=== PATIENT | female | born 1950 | race Caucasian/White ===

== ENCOUNTER 2016-05-22 22:27 | Emergency (ER) | payer OTHER ==
[2016-05-22 22:42] VITALS: BP 123/84
[2016-05-22] MEDS ORDERED: Budesonide 0.5 MG/2 ML Neb Susp NEB ONE (23:20)
--- NOTE | 2016-05-22 23:29 | EDM.PDOC ---
ED HPI GENERAL MEDICAL PROBLEM - General Chief Complaint: General Stated Complaint: COUGH Time Seen by Provider: 05/22/16 23:05 Source of Information: Reports: Patient History Limitations: Reports: No limitations - History of Present Illness INITIAL COMMENTS - FREE TEXT/NARRATIVE: Cough, congestion, chills, low grade fever present for 4 days. was sick with viral URI just before patient became ill. No GI changes. Some nausea with coughing however. COugh is non-productive. Achy, sore throat which she attributes to cough. ROS otherwise negative. History of COPD. Chest Pain Score (Numeric/FACES): 5 - Related Data Allergies Allergy/AdvReac Type Severity Reaction Status Date / Time codeine Allergy Itching Verified 05/22/16 22:43 oxycodone Allergy Itching Verified 05/22/16 22:43 albuterol Allergy Nervousness Uncoded 05/22/16 22:43 Home Meds: Home Meds Ondansetron [Zofran ODT] 4 mg PO Q6H PRN #15 tab.dis 03/13/14 [Rx] Simvastatin [Zocor] 10 mg PO DAILY 04/06/15 [History] Tiotropium [Spiriva HandiHaler] 18 mcg INH BID 04/06/15 [History] Benzonatate [Tessalon Perles] 100 mg PO TID PRN #20 cap 05/22/16 [Rx] Budesonide/Formoterol Fumarate [Symbicort 160-4.5 Mcg Inhaler] 1 puff INH DAILY 05/22/16 [History] Doxycycline [Vibramycin] 100 mg PO BID #14 cap 05/22/16 [Rx] Past Medical History Cardiovascular History: Reports: High cholesterol Respiratory History: Reports: Asthma, SOB, Other (see below) Other Respiratory History: emphysema Musculoskeletal History: Reports: Arthritis, Fibromyalgia Psychiatric History: Reports: Depression Endocrine/Metabolic History: Reports: Vitamin D deficiency - Past Surgical History HEENT Surgical History: Reports: LASIK GI Surgical History: Reports: Hernia repair/other Social & Family History - Tobacco Use Smoking Status *Q: Former Smoker Years of Tobacco use: 25 Packs/Tins Daily: 3 Used Tobacco, but Quit: Yes Month Tobacco Last Used: 05/30/1984 Second Hand Smoke Exposure: No - Caffeine Use Caffeine Use: Reports: Coffee - Alcohol Use Days Per Week of Alcohol Use: 1 Number of Drinks Per Day: 1 Total Drinks Per Week: 1 - Recreational Drug Use Recreational Drug Use: No ED ROS GENERAL - Review of Systems Review Of Systems: ROS reveals no pertinent complaints other than HPI. ED EXAM, GENERAL - Physical Exam Exam: See Below Exam Limited By: No limitations General Appearance: alert, WD/WN, no apparent distress, other (frequent dry cough noted. ) Eye Exam: bilateral eye: EOMI, normal inspection, PERRL Ears: normal external exam, normal canal, hearing grossly normal, normal TMs Nose: No: nasal swelling, nasal drainage Throat/Mouth: Normal inspection, Normal lips, Normal oropharynx, Normal voice, No airway compromise Head: atraumatic, normocephalic Neck: normal inspection, supple, non-tender, full range of motion. No: lymphadenopathy (L), lymphadenopathy (R) Respiratory/Chest: no respiratory distress, lungs clear, normal breath sounds, no accessory muscle use Cardiovascular: no murmur, tachycardia (pulse 103) GI/Abdominal: soft, non tender Extremities: normal capillary refill Neurological: alert, oriented, normal cognition, normal gait, no motor/sensory deficits Psychiatric: normal affect, normal mood Skin Exam: Warm, Dry, Intact, Normal color Course - Vital Signs Last Recorded V/S: Last Vital Signs Temp 37.3 C 05/22/16 22:39 Pulse 103 H 05/22/16 22:39 Resp 20 05/22/16 22:39 BP 123/84 05/22/16 22:39 Pulse Ox 97 05/22/16 22:39 - Orders/Labs/Meds Orders: Active Orders 24 hr Category Date Time Status RT Aerosol Therapy [RC] ASDIRECTED Care 05/22/16 23:21 Ordered Chest 2V [CR] Stat Exams 05/22/16 22:48 Taken Labs: Laboratory Tests 05/22/16 Range/Units 22:47 WBC 13.7 H (4.0-10.2) K/uL RBC 5.03 (3.77-5.09) M/uL Hgb 15.6 H (11.7-15.5) g/dL Hct 46.5 H (34.0-46.0) % MCV 92.4 (84.0-98.0) fL MCH 31.0 (28.2-33.3) pg MCHC 33.5 (31.7-36.0) g/dL RDW 12.6 (11.2-14.1) % Plt Count 289 (150-350) K/uL Neut % (Auto) 59.5 (45.0-80.0) % Lymph % (Auto) 24.5 (10.0-50.0) % Lassen % (Auto) 12.3 (2.0-14.0) % Eos % (Auto) 3.0 (0.0-5.0) % Baso % (Auto) 0.7 (0.0-2.0) % Neut # 8.16 H (1.40-7.00) K/uL Lymph # 3.36 (0.50-3.50) K/uL Lassen # 1.68 H (0.00-1.00) K/uL Eos # 0.41 (0.00-0.50) K/uL Baso # 0.09 (0.00-0.20) K/uL Meds: Medications Discontinued Medications Generic Name Dose Route Start Last Admin Trade Name Freq PRN Reason Stop Dose Admin Budesonide 0.5 mg 05/22/16 23:20 05/22/16 23:26 Pulmicort NEB 05/22/16 23:21 0.5 mg ONETIME ONE Administration - Radiology Interpretation Free Text/Narrative:: Chest xray shows COPD. No obvious acute focal infiltrates. - Re-Assessments/Exams Free Text/Narrative Re-Assessment/Exam: 05/22/16 23:26 Patient has history of adverse reaction to Albuterol as well as hives with Codeine. Unable to prescribe inhaler or Robit AC. Will treat with Prednisone course and Tessalon. Lungs overall clear, no focal infiltrates on xray noted. Radiology to review. Day four of illness. WBC 13. Feel that this is most likely a viral illness at this point. However will give patient a prescription for Doxy to be filled if things do not start to improve by Tuesday, or if symptoms worsen. Departure - Departure Time of Disposition: 23:29 Disposition: Home, Self-Care 01 Condition: good Clinical Impression: Bronchitis Prescriptions: Benzonatate [Tessalon Perles] 100 mg PO TID PRN #20 cap PRN Reason: Cough Doxycycline [Vibramycin] 100 mg PO BID #14 cap Instructions: Prednisone tablets, Acute Bronchitis Referrals: PCP,Unknown [Primary Care Provider] - Forms: ED Department Discharge Additional Instructions: Start Doxycycline if symptoms have not improved within 2-3 days, or if things appear to be worsening. Follow up as needed if you have any problems. - My Orders Last 24 Hours: My Active Orders 05/22/16 22:48 Chest 2V [CR] Stat 05/22/16 23:21 RT Aerosol Therapy [RC] ASDIRECTED - Assessment/Plan Last 24 Hours: My Active Orders 05/22/16 22:48 Chest 2V [CR] Stat 05/22/16 23:21 RT Aerosol Therapy [RC] ASDIRECTED
== END 2016-05-23 | disposition home or self-care (01) ==
LOC: LL.ED 22:27
DX: J40 Bronchitis, not specified as acute or chronic (principal); J45.909 Unspecified asthma, uncomplicated; M19.90 Unspecified osteoarthritis, unspecified site; F32.9 Major depressive disorder, single episode, unspecified; Z88.5 Allergy status to narcotic agent; Z88.8 Allergy status to other drugs, medicaments and biological substances; Z79.899 Other long term (current) drug therapy; Z87.891 Personal history of nicotine dependence
CPT/HCPCS: 36415; 71020; 85025; 87804; 94640; 94664; 99283

== ENCOUNTER 2018-03-12 19:35 | Emergency (ER) | payer OTHER ==
--- NOTE | 2018-03-12 19:48 | EDM.PDOC ---
ED HPI GENERAL MEDICAL PROBLEM - General Chief Complaint: Laceration Stated Complaint: laceration Time Seen by Provider: 03/12/18 19:40 Source of Information: Reports: Patient, Family (), Old Records ([facility] EMR. No paper hospital chart available.) History Limitations: Reports: No Limitations - History of Present Illness INITIAL COMMENTS - FREE TEXT/NARRATIVE: The patient was brought to the emergency room via private automobile by her for evaluation of a laceration on her right foot, which occurred at home at about 18:30 hours this evening. The patient was walking on her kitchen floor on stocking feet when she accidentally stepped on a large piece of glass with no history of foreign body and patient easily able to completely remove the glass from her sock and foot. No treatment prior to arrival. She rates her discomfort at 4/10. Her last tetanus booster was 4 years ago [address] the [facility] in [place] by her history. No recent history of abdominal pain, heartburn, nausea, diarrhea, melena, gross hematochezia, or any food intolerance , including fatty foods, etc.. The patient also denies any recent fever, cough, wheezing, dyspnea, etc.. No history of fall, injury, or other complaints. Onset: Today, Sudden Onset Date: 03/12/18 Onset Time: 18:30 Duration: Constant Location: Reports: Lower Extremity, Right. 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: Reports: Other (see below) (None) Right Feet Pain Score (Numeric/FACES): 4 - Related Data Allergies Allergy/AdvReac Type Severity Reaction Status Date / Time codeine Allergy Itching Verified 03/12/18 19:40 oxycodone Allergy Itching Verified 03/12/18 19:40 albuterol Allergy Nervousness Uncoded 03/12/18 19:40 Home Meds: Home Meds Tiotropium [Spiriva HandiHaler] 18 mcg INH BID 04/06/15 [History] Budesonide/Formoterol Fumarate [Symbicort 160-4.5 Mcg Inhaler] 1 puff INH DAILY 05/22/16 [History] Alendronate Sodium [Fosamax] 70 mg PO TH 03/12/18 [History] Celecoxib [CeleBREX] 50 mg PO DAILY PRN 03/12/18 [History] Levalbuterol Tartrate [Xopenex Hfa] 1 puff IH Q2H PRN 03/12/18 [History] Past Medical History HEENT History: Reports: Impaired Vision, Other (See Below). Denies: Allergic Rhinitis, Cataract, Glaucoma, Hard of Hearing, Macular Degeneration, Otitis Media, Retinal Detachment Other HEENT History: Patient wears glasses. Cardiovascular History: Reports: High Cholesterol. Denies: CAD, Hypertension Respiratory History: Reports: Bronchitis, Recurrent, COPD, Pneumonia, Recurrent , SOB. Denies: Asthma Gastrointestinal History: Reports: Colon Polyp Musculoskeletal History: Reports: Arthritis, Back Pain, Chronic, Fracture, Neck Pain, Chronic, Osteoarthritis, Osteoporosis, Other (See Below). Denies: Amputation, Fibromyalgia, Gout, RA, SLE Other Musculoskeletal History: [facility] [place] Proximal to mid right first metatarsal fracture on 03/22/16. Left mid humeral shaft fracture at age 57 with right mid humeral shaft fracture in 2009. Mild scoliosis. Psychiatric History: Reports: Depression Endocrine/Metabolic History: Reports: Vitamin D Deficiency - Past Surgical History HEENT Surgical History: Reports: LASIK, Oral Surgery, Other (See Below). Denies : Adenoidectomy, Cataract Surgery, Eye Surgery, Myringotomy w Tube(s), Naso- Sinus Surgery, Tonsillectomy Other HEENT Surgeries/Procedures: LASIK in 2004. [place] teeth extraction 3 in her late 20s. GI Surgical History: Reports: Colonoscopy, Hernia Repair/Other, Other (See Below ) Other GI Surgeries/Procedures: Colonoscopy in September 2016 with excision of 8 polyps of unknown type. Right inguinal hernia repair in 1994. - Past Imaging History Past Imaging History: Reports: Mammogram (Last mammogram on 10/27/17.), MRI ( Lumbar spine on 11/26/13.) Social & Family History - Tobacco Use Smoking Status *Q: Former Smoker Tobacco Use Within Last Twelve Months: No Years of Tobacco use: 22 Packs/Tins Daily: 3 Packs/Tins Daily Comment: Smoked between ages 20 and 42 with no use since 1994. 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 ED EXAM, SKIN/RASH Exam: See Below Exam Limited By: No Limitations General Appearance: Alert, WD/WN, No Apparent Distress Head: Atraumatic, Normocephalic Neck: Normal Inspection, Supple, Non-Tender, Full Range of Motion. No: Lymphadenopathy (L), Lymphadenopathy (R) Respiratory/Chest: No Respiratory Distress, Lungs Clear, Normal Breath Sounds, No Accessory Muscle Use, Chest Non-Tender. No: Pleural Rub, Retractions Cardiovascular: Normal Peripheral Pulses, Regular Rate, Rhythm, No Edema, No Gallop, No JVD, No Murmur, No Rub. No: Gallop/S3, Gallop/S4, Friction Rub Peripheral Pulses: 2+: Radial (R), Femoral (L), Dorsalis Pedis (R) GI/Abdominal: Normal Bowel Sounds, Soft, Non-Tender, No Organomegaly, No Distention, No Abnormal Bruit, No Mass, Pelvis Stable. No: Guarding (Female) Exam: Deferred Rectal (Female) Exam: Deferred Back Exam: Normal Inspection, Full Range of Motion. No: CVA Tenderness (L), CVA Tenderness (R), Muscle Spasm Extremities: Normal Range of Motion, No Pedal Edema, Other (1 cm in length superficial laceration over the mid medial plantar surface of the right foot with no evidence of crepitation, deformity, foreign body, or significant nerve/ vascular involvement). No: Non-Tender (Localized tenderness at laceration site mild), Jv's Sign Neurological: Alert, Oriented, CN II-XII Intact, Normal Cognition, Normal Gait, No Motor/Sensory Deficits Psychiatric: Normal Affect, Normal Mood Skin: Warm, Dry, Normal Color, No Rash, Wound/Incision (As above) Location, Skin: Lower Extremity, Right (As above) Characteristics: Linear Associated features: Tenderness (As above). No: Swelling, Lymphangitis Lymphatic: No Adenopathy ED SKIN PROCEDURES - Laceration/Wound Repair Right Middle Medial Ventral Foot Lac/Wound length In cm: 1.0 Appearance: Subcutaneous Distal NVT: Neuro & Vascular Intact, No Tendon Injury Anesthetic Type: Local Local Anesthesia - Lidocaine (Xylocaine): 1% Plain Local Anesthetic Volume: Other (6 mL) Skin Prep: Providone-Iodine (Betadine) Exploration/Debridement/Repair: Wound Explored, In a Bloodless Field, Explored to Base, No Foreign Material Found Closed with: Sutures Suture Size: 4-0 # of Sutures: 3 Suture Type: Nylon, Interrupted, Simple Drain Placement: No Sterile Dressing Applied: Nurse Tetanus Status Addressed: Yes Complications: No Course - Vital Signs Last Recorded V/S: Last Vital Signs Temp 36.8 C 03/12/18 19:48 Pulse 72 03/12/18 19:48 Resp 18 03/12/18 19:48 BP 144/84 H 03/12/18 19:48 Pulse Ox 97 03/12/18 19:48 - Orders/Labs/Meds Orders: Active Orders 24 hr Category Date Time Status Foot 2V Rt [CR] Stat Exams 03/12/18 19:49 Ordered Obtain Past Medical Record [OM.PC] Routine Oth 03/12/18 19:48 Active Labs: None Meds: Medications Discontinued Medications Generic Name Dose Route Start Last Admin Trade Name Freq PRN Reason Stop Dose Admin Lidocaine HCl 5 ml 03/12/18 19:49 03/12/18 19:55 Xylocaine-Mpf 1% INJECT 03/12/18 19:50 5 ml ONETIME ONE Administration Lidocaine HCl 5 ml 03/12/18 19:49 03/12/18 19:56 Xylocaine-Mpf 1% INJECT 03/12/18 19:50 5 ml ONETIME ONE Administration Neomycin/Polymyxin/Bacitracin 1 each 03/12/18 19:49 03/12/18 19:56 Triple Antibiotic Oint TOP 03/12/18 19:50 1 each ONETIME ONE Administration - Radiology Interpretation Free Text/Narrative:: X-rays of the right foot, 2 views, shows mild to moderate osteoarthritic changes with no evidence of fracture, dislocation, foreign body, etc. Departure - Departure Time of Disposition: 20:40 Disposition: Home, Self-Care 01 Condition: Good Clinical Impression: Laceration COPD (chronic obstructive pulmonary disease) Qualifiers: COPD type: emphysema Emphysema type: panlobular Qualified Code(s): J43.1 - Panlobular emphysema Hyperlipidemia Qualifiers: Hyperlipidemia type: unspecified Qualified Code(s): E78.5 - Hyperlipidemia, unspecified Osteoarthritis Qualifiers: Osteoarthritis location: multiple joints Osteoarthritis type: primary Qualified Code(s): M15.0 - Primary generalized (osteo)arthritis - Discharge Information *PRESCRIPTION DRUG MONITORING PROGRAM REVIEWED*: Not Applicable *COPY OF PRESCRIPTION DRUG MONITORING REPORT IN PATIENT VALENTIN: Not Applicable Instructions: Stitches, Kyaw, or Adhesive Wound Closure, [id number], Laceration Care, Adult, [id number] Referrals: Nikki Cunha PA-C [Primary Care Provider] - Forms: ED Department Discharge Additional Instructions: 1. Followup with your regular provider in 10-14 days as directed for reevaluation and removal of 3 stitches. Bring these discharge instructions with you to that visit. 2. Antibacterial soap wash/soak with subsequent antibacterial dressing such as Neosporin, etc. as directed 2 times per day until the wound or laceration site completely heals. Keep the area clean and dry with activity restrictions as discussed. Never use hydroperoxide for wound care. 3. Obtain your influenza booster for you and your SANDIP as discussed. 4. Immediately after this visit verify that your cellular telephone's voicemail has been activated and is empty. Also verify that your home telephone 's answering machine is operating properly and has space to receive messages. Note that it is sometimes necessary for us to be able to contact you at a later date to discuss your medical care. 5. Please remember that we are ALWAYS here for you and want to answer any questions you may have. Feel free to call the hospital any time and we call you back SANDIP. - Problem List & Annotations (1) Laceration SNOMED Code(s): 121557121 Code(s): ZEU0576 - Status: Acute Priority: High Current Visit: Yes Onset Date: 03/12/18 Annotation/Comment:: Excellent results with laceration repair as above. ER nurse did confirm last DTaP on 01/15/14 through [facility]. Laceration care, activity restrictions, etc. extensively discussed. (2) COPD (chronic obstructive pulmonary disease) SNOMED Code(s): 24609850 Code(s): J44.9 - CHRONIC OBSTRUCTIVE PULMONARY DISEASE, UNSPECIFIED Status : Chronic Priority: Medium Current Visit: Yes Annotation/Comment:: Stable by history with no recent fever or bronchitic type symptoms. Qualifiers: COPD type: emphysema Emphysema type: panlobular Qualified Code(s): J43.1 - Panlobular emphysema (3) Hyperlipidemia SNOMED Code(s): 63976925 Code(s): E78.5 - HYPERLIPIDEMIA, UNSPECIFIED Status: Chronic Priority: Medium Current Visit: Yes Annotation/Comment:: Her statin therapy was apparently discontinued by her regular provider secondary to nonspecific myalgias with previous history of nonconfirmed fibromyalgia, which has been ruled out by her regular provider as above. She does have a follow-up appointment in the near future for repeat lipid panel, etc. by her history. Qualifiers: Hyperlipidemia type: unspecified Qualified Code(s): E78.5 - Hyperlipidemia , unspecified (4) Osteoarthritis SNOMED Code(s): 136447610 Code(s): M19.90 - UNSPECIFIED OSTEOARTHRITIS, UNSPECIFIED SITE Status: Chronic Priority: Medium Current Visit: Yes Annotation/Comment:: Stable by history Qualifiers: Osteoarthritis location: multiple joints Osteoarthritis type: primary Qualified Code(s): M15.0 - Primary generalized (osteo)arthritis - Problem List Review Problem List Initiated/Reviewed/Updated: Yes - My Orders Last 24 Hours: My Active Orders 03/12/18 19:48 Obtain Past Medical Record [OM.PC] Routine 03/12/18 19:49 Foot 2V Rt [CR] Stat - Assessment/Plan Last 24 Hours: My Active Orders 03/12/18 19:48 Obtain Past Medical Record [OM.PC] Routine 03/12/18 19:49 Foot 2V Rt [CR] Stat Assessment:: As above Plan: As above. Extensive precautions were given to the patient and her , who are in agreement with the treatment plan. See Patient Instructions for further treatment and plan.
[2018-03-12 19:52] VITALS: BP 144/84
[2018-03-12] MEDS: Bacitracin/Neomycin/Polymyxin B Oint 0.9 GM U/D Packet TOP ONE (19:56)
== END 2018-03-12 20:40 | disposition home or self-care (01) ==
LOC: LL.ED 19:35
DX: S91.311A Laceration without foreign body, right foot, initial encounter (principal); E78.00 Pure hypercholesterolemia, unspecified; E78.5 Hyperlipidemia, unspecified; J43.1 Panlobular emphysema; M15.0 Primary generalized (osteo)arthritis; Z87.891 Personal history of nicotine dependence; Z79.899 Other long term (current) drug therapy; Z88.5 Allergy status to narcotic agent; Y92.009 Unspecified place in unspecified non-institutional (private) residence as the place of occurrence of the external cause; W25.XXXA Contact with sharp glass, initial encounter
CPT/HCPCS: 12001; 73620-RT; 99283

== ENCOUNTER 2020-08-02 12:41 | Emergency (ER) | payer OTHER ==
[2020-08-02] MEDS ORDERED: Levalbuterol HCl 1.25 MG/3 ML Neb NEB ONE (12:53)
[2020-08-02 14:14] VITALS: BP 131/90; PULSE 95
--- NOTE | 2020-08-02 21:26 | EDM.PDOC ---
ED HPI GENERAL MEDICAL PROBLEM - General Chief Complaint: Respiratory Problem Stated Complaint: shortness of breath Time Seen by Provider: 08/02/20 13:00 Source of Information: Reports: Patient History Limitations: Reports: No Limitations - History of Present Illness INITIAL COMMENTS - FREE TEXT/NARRATIVE: Pt. presents to ER with complaints of 6 day history of cough productive or yellowish sputum, chest congestion, and wheezing. Pt. states that she thinks exposure to herbs. Pt. states that she has a history of COPD and has been taking her medications. Denies any fever or chills. No chest pain or shortness of breath. Pt. denies any jaw, arm, neck or back pain. No lightheadedness. No nausea, vomiting, or diarrhea. Denies any ill contacts. Pt. was screened for covid 19 last Tuesday and this was negative. Onset Date: 08/02/20 - Related Data Allergies Allergy/AdvReac Type Severity Reaction Status Date / Time codeine Allergy Itching Verified 08/02/20 12:43 oxycodone Allergy Itching Verified 08/02/20 12:43 albuterol Allergy Nervousness Uncoded 08/02/20 12:43 Home Meds: Home Meds Tiotropium [Spiriva HandiHaler] 18 mcg INH DAILY 04/06/15 [History] Budesonide/Formoterol Fumarate [Symbicort 160-4.5 Mcg Inhaler] 1 puff INH BID 05/22/16 [History] Alendronate Sodium [Fosamax] 70 mg PO TH 03/12/18 [History] Celecoxib [CeleBREX] 50 mg PO BID 03/12/18 [History] Levalbuterol Tartrate [Xopenex Hfa] 1 puff IH Q2H PRN 03/12/18 [History] Past Medical History HEENT History: Reports: Impaired Vision, Other (See Below) Other HEENT History: Patient wears glasses. Cardiovascular History: Reports: High Cholesterol Respiratory History: Reports: Bronchitis, Recurrent, COPD, Pneumonia, Recurrent, SOB Other Respiratory History: emphysema Gastrointestinal History: Reports: Colon Polyp Musculoskeletal History: Reports: Arthritis, Back Pain, Chronic, Fracture, Neck Pain, Chronic, Osteoarthritis, Osteoporosis, Other (See Below) Other Musculoskeletal History: Fib[facility] [place]. Proximal to mid right first metatarsal fracture on 03/22/16. Left mid humeral shaft fracture at age 57 with right mid humeral shaft fracture in 2009. Mild scoliosis. Psychiatric History: Reports: Depression Endocrine/Metabolic History: Reports: Vitamin D Deficiency - Infectious Disease History Infectious Disease History: Reports: Chicken Pox, Measles, Mumps, Rubella - Past Surgical History HEENT Surgical History: Reports: LASIK, Oral Surgery, Other (See Below) Other HEENT Surgeries/Procedures: LASIK in 2004. [place] teeth extraction 3 in her late 20s. GI Surgical History: Reports: Colonoscopy, Hernia Repair/Other, Other (See Below) Other GI Surgeries/Procedures: Colonoscopy in September 2016 with excision of 8 polyps of unknown type. Right inguinal hernia repair in 1994. 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) ED ROS GENERAL - Review of Systems Review Of Systems: See Below Constitutional: Reports: No Symptoms HEENT: Reports: No Symptoms Respiratory: Reports: Shortness of Breath, Wheezing Cardiovascular: Reports: No Symptoms Endocrine: Reports: No Symptoms GI/Abdominal: Reports: No Symptoms : Reports: No Symptoms Musculoskeletal: Reports: No Symptoms Skin: Reports: No Symptoms Neurological: Reports: No Symptoms Psychiatric: Reports: No Symptoms Hematologic/Lymphatic: Reports: No Symptoms Immunologic: Reports: No Symptoms ED EXAM, GENERAL - Physical Exam Exam: See Below Exam Limited By: No Limitations General Appearance: Alert, WD/WN, No Apparent Distress Nose: Normal Inspection, Normal Mucosa, No Blood Throat/Mouth: Normal Inspection, Normal Lips, Normal Teeth, Normal Gums, Normal Oropharynx, Normal Voice, No Airway Compromise Head: Atraumatic, Normocephalic Neck: Normal Inspection, Supple, Non-Tender, Full Range of Motion Respiratory/Chest: No Respiratory Distress, No Accessory Muscle Use, Decreased Breath Sounds Cardiovascular: Normal Peripheral Pulses, Regular Rate, Rhythm, No Edema, No JVD Peripheral Pulses: 4+: Radial (L) GI/Abdominal: Soft, Non-Tender, No Distention, No Mass (Female) Exam: Deferred Rectal (Female) Exam: Deferred Back Exam: Normal Inspection, Full Range of Motion Extremities: Normal Inspection, Normal Range of Motion, No Pedal Edema, Normal Capillary Refill Neurological: Alert, Oriented, CN II-XII Intact, Normal Cognition, Normal Reflexes, No Motor/Sensory Deficits Psychiatric: Normal Affect, Normal Mood Skin Exam: Warm, Dry, Intact, Normal Color, No Rash Lymphatic: No Adenopathy Course - Vital Signs Last Recorded V/S: Last Vital Signs Temp 37.3 C 08/02/20 12:46 Pulse 95 08/02/20 13:15 Resp 20 08/02/20 13:15 BP 131/90 08/02/20 13:15 Pulse Ox 98 08/02/20 13:15 - Orders/Labs/Meds Meds: Medications Discontinued Medications Generic Name Dose Route Start Last Admin Trade Name Valentin PRN Reason Stop Dose Admin Levalbuterol HCl 1.25 mg 08/02/20 12:53 08/02/20 13:04 Levalbuterol Hcl 1.25 Mg/3 Ml Neb NEB 08/02/20 12:54 1.25 mg ONETIME ONE Administration Departure - Departure Time of Disposition: 14:30 Disposition: Home, Self-Care 01 Clinical Impression: COPD exacerbation - Discharge Information Instructions: Chronic Obstructive Pulmonary Disease Exacerbation, [id number] Referrals: PCP,Unknown [Primary Care Provider] - Forms: ED Department Discharge Additional Instructions: Prednisone 10mg 4 tabs daily for 5 days Doxycycline 100mg 1 tab twice daily for 10 days Continue with your xopenex inhaler Minimize time outside for the next several days recheck in clinic in 10-14 days, sooner of not gradually improving Sepsis Event Note (ED) - Evaluation Sepsis Screening Result: No Definite Risk - Focused Exam Vital Signs: Vital Signs Temp Pulse Resp BP Pulse Ox 08/02/20 13:15 95 20 131/90 98 08/02/20 12:46 37.3 C 98 20 140/88 99 - Problem List Review Problem List Initiated/Reviewed/Updated: Yes - Assessment/Plan Plan: Prednisone 10mg 4 tabs daily for 5 days Doxycycline 100mg 1 tab twice daily for 10 days Continue with your xopenex inhaler Minimize time outside for the next several days recheck in clinic in 10-14 days, sooner of not gradually improving
== END 2020-08-02 13:20 | disposition home or self-care (01) ==
LOC: LL.ED 12:41
DX: J44.1 Chronic obstructive pulmonary disease with (acute) exacerbation (principal); E78.00 Pure hypercholesterolemia, unspecified; Z87.891 Personal history of nicotine dependence; Z88.5 Allergy status to narcotic agent; Z88.8 Allergy status to other drugs, medicaments and biological substances
CPT/HCPCS: 99284; 99285-25; J7612-GY

== ENCOUNTER 2021-04-18 14:45 | Emergency (ER) | payer OTHER, MEDICARE ==
[2021-04-18 15:03] VITALS: BP 142/72; PULSE 64
[2021-04-18] MEDS ORDERED: Lidocaine 2% 5 ML SDV INJECT ONE (15:14)
[2021-04-18] MEDS ORDERED: Bacitracin/Neomycin/Polymyxin B Oint 0.9 GM U/D Packet TOP ONE (15:25)
== END 2021-04-18 15:50 | disposition home or self-care (01) ==
LOC: LL.ED 14:45
DX: S61.211A Laceration without foreign body of left index finger without damage to nail, initial encounter (principal); J43.9 Emphysema, unspecified; Z87.891 Personal history of nicotine dependence; Z88.5 Allergy status to narcotic agent; Z88.8 Allergy status to other drugs, medicaments and biological substances; Z79.899 Other long term (current) drug therapy; W25.XXXA Contact with sharp glass, initial encounter
CPT/HCPCS: 12001; 17250; 99282-25; 99283

== ENCOUNTER 2021-12-05 09:52 | Emergency (ER) | payer OTHER, MEDICARE ==
[2021-12-05] MEDS ORDERED: Sodium Chloride 0.9% 10 ML Syringe FLUSH PRN (10:05)
[2021-12-05] MEDS ORDERED: Sodium Chloride 0.9% 1,000 ML IV SCH (10:15)
[2021-12-05 10:49] LABS: ANION GAP 11.6 meq/L (7-15); CHLORIDE,CL 106 mmol/L (98-107); SODIUM,NA 143 mmol/L (136-145)
[2021-12-05 10:51] LABS: ESTIMATED GFR 76 mL/min (>=60)
[2021-12-05 10:58] VITALS: BP 127/89; PULSE 88
[2021-12-05 11:14] LABS: RESPIRATORY SYNCYTIAL VIR NAA NEGATIVE (NEGATIVE)
[2021-12-05 11:16] LABS: CORONAVIRUS COVID-19 NAA POSITIVE (NEGATIVE)
== END 2021-12-05 11:45 | disposition home or self-care (01) ==
LOC: LL.ED 09:52
DX: U07.1 COVID-19 (principal); J44.9 Chronic obstructive pulmonary disease, unspecified; Z88.5 Allergy status to narcotic agent; Z88.8 Allergy status to other drugs, medicaments and biological substances; Z79.899 Other long term (current) drug therapy
CPT/HCPCS: 0241U; 36415; 71046; 80053; 81003; 83735; 85025; 87040; 96360; 99283-25; 99284; J7030

== ENCOUNTER → 2021-12-26 | Emergency (ER) | payer OTHER ==
[2022-01-13 12:54] LABS: ANION GAP 16.1 meq/L (7-15); CHLORIDE,CL 111 mmol/L (98-107); ESTIMATED GFR 76 mL/min (>=60); SODIUM,NA 147 mmol/L (136-145)
== END ==
LOC: LL.ED 12:20
DX: T43.611A Poisoning by caffeine, accidental (unintentional), initial encounter (principal); R00.0 Tachycardia, unspecified
CPT/HCPCS: 36415; 80053; 83735; 96360; 99284-25

== ENCOUNTER 2022-05-06 16:10 | Emergency (ER) | payer OTHER, MEDICARE ==
[2022-05-06 17:22] LABS: ANION GAP 11.8 meq/L (7-15); CHLORIDE,CL 103 mmol/L (98-107); SODIUM,NA 141 mmol/L (136-145)
[2022-05-06 17:24] LABS: ESTIMATED GFR 70 mL/min (>=60)
[2022-05-06 17:53] LABS: CORONAVIRUS COVID-19 NAA NEGATIVE (NEGATIVE); RESPIRATORY SYNCYTIAL VIR NAA NEGATIVE (NEGATIVE)
[2022-05-06] MEDS ORDERED: Take Home: predniSONE 20 MG, 4 Tab Pack PO ONE (18:44)
[2022-05-06 19:18] VITALS: BP 117/79; PULSE 82
== END 2022-05-06 19:00 | disposition home or self-care (01) ==
LOC: LL.ED 16:10
DX: J44.1 Chronic obstructive pulmonary disease with (acute) exacerbation (principal); M19.90 Unspecified osteoarthritis, unspecified site; Z88.5 Allergy status to narcotic agent; Z88.8 Allergy status to other drugs, medicaments and biological substances; Z79.899 Other long term (current) drug therapy; Z79.82 Long term (current) use of aspirin; Z20.822 Contact with and (suspected) exposure to COVID-19
CPT/HCPCS: 0241U; 36415; 71046; 80053; 81003; 85025; 87081; 87430; 99283; 99284; A9270-GY